=== PATIENT | female | born 1965 | race Caucasian/White ===

== ENCOUNTER 2025-05-22 14:58 | Day surgery (SDC) | payer OTHER, SELFPAY ==
[2025-05-22] VITALS (8 sets, daily range): BP systolic 98–127; BP diastolic 52–97; BMI 21.7
--- NOTE | 2025-05-22 09:46 | ED.GENMED ---
History of Present Illness
General
Chief Complaint: Abdominal Pain
Source: patient
Exam Limitations: none
Time Seen by Provider: 05/22/25 09:36
History of Present Illness
History of Present Illness:
60-year-old female presents complaining of right lower abdominal pain starting about 5 days ago and been fairly constant since then. She was seen by her family doctor and thought to potentially have appendicitis. She states at the current time her
pain is slightly improved. She denies any urinary symptoms nausea or vomiting. No fever. No prior abdominal surgical history. No chest pain or shortness of breath. Pain is sharp in nature. No other complaints at this time
Past History
Past History
ED Past Medical History: None
ED Past Surgical History: Gynecological (D and C)
Social History
Tobacco: Non-smoker
Alcohol: None
Drug: None
Personal:
Living: with family
Employment: Employed
Phy Exam
Physical Exam
Physical Exam:
General: Well-appearing female no acute distress
HEENT normocephalic atraumatic
Heart: Regular rate and rhythm lungs: Clear no wheeze abdomen is soft mildly tender to the right lower quadrant no guarding or rebound tenderness nondistended no costovertebral angle tenderness
Extremities: No cyanosis or edema
Course
Orders/Labs/Results
Orders:
Orders
05/22/25 09:47
CT Abd/pelvis W Iv Cont Urgent
Comment:
Reason For Exam: rlq pain
05/22/25 09:54
Complete Blood Count/With Diff Urgent
Comprehensive Metabolic Panel Urgent
Lipase Urgent
Urinalysis Reflex To Culture Urgent
Date Specimen was Collected: 05/22/25
Time Specimen was Collected: 09:53
Urine Microscopic Reflex Cult Urgent
05/22/25 14:03
Zosyn 3.375 grams IVPB NOW Piperacillin/Tazo 3.375 Gram [Zosyn] 3.375 gram in 50 ml IV NOW
Abnormal Lab Results
05/22/25
09:54
RBC 3.89 L 10^6/uL
(4.20-5.40)
Hgb 11.2 L g/dL
(12.0-16.0)
Hct 33.6 L %
(37.0-47.0)
Absolute Lymphs (auto) 1.1 L 10^3/uL
(1.2-3.4)
Lymphocytes % 20.4 L %
(20.5-51.1)
Monocytes % 9.8 H %
(1.7-9.3)
Glucose 109 H mg/dl
(70-99)
ALT 41 H U/L
(0-35)
Urine Bacteria (Reflex) Few A
(Negative)
Urine Albumin (Reflex) 1+ A
(Neg - Trace)
05/22/25 09:54
05/22/25 09:54
Vital Signs
Initial and Last Documented VS:
Initial Vital Signs
Temp Pulse Resp BP Pulse Ox
98.5 F 92 16 119/85 99
05/22/25 09:09 05/22/25 09:09 05/22/25 09:09 05/22/25 09:09 05/22/25 09:09
Last Documented Vital Signs
Temp Pulse Resp BP Pulse Ox
98.5 F 92 16 119/85 99
05/22/25 09:09 05/22/25 09:09 05/22/25 09:09 05/22/25 09:09 05/22/25 09:47
MDM/Problems Addressed
Differential Diagnosis Includes:
Lower right abdominal pain. Consider constipation versus appendicitis versus ovarian related pathology. At the current time her symptoms are slightly improved.
Will check labs urinalysis and CT of the abdomen
*Pulse Oximetry
SaO2: 99
Oxygen Mode of Delivery: Room air
Patient hypoxic: no
*Critical Care Note
Total Time (30-74mins, 75-104mins- exclusive of procedures): Not Applicable
Update Note
Update Note:
Patient reexamined. CT performed demonstrates enlarged appendix measuring up to 2 cm in diameter that seems to be folded over on itself with surrounding stranding. Question appendicitis versus mucocele versus less likely appendiceal cancer.
Discussed with surgery. Surgery plans on taking her to the OR today. Zosyn ordered
ED Attending Note
-
Portions of this chart may have been created with voice recognition software.� Occasional wrong word or��sound alike� substitutions may have occurred due to the inherent limitations of voice recognition software.
Discharge Plan
Departure
Patient Disposition: Admit
Date of Disposition: 05/22/25
Time of Disposition: 14:05
Presentation/result/management discussed w/ accepting MD/: Juanjose
Discharge Problem:
Abdominal pain
Prescriptions:
No Action
hydrocodone-acetaminophen 1 TABLET tablet
1 tab PO Q4HPRN PRN (Reason: pain) Qty: 13 0RF
Referrals:
Flakita Jackson DO [Family Provider, Internal Medicine]
Interventions
Interventions:
*Risk Screen - Suicide Last Done: 05/22/25 09:09
*General Assessment Last Done: 05/22/25 09:51
*Neglect/Abuse Screening Last Done: 05/22/25 09:09
EC-Izftpj-Jsmioebgdg Assessment Last Done: 05/22/25 09:51
Discharge Date and Time
Print Language: BELARUSIAN
[2025-05-22 10:24] LABS: Hematocrit 33.6 % (37.0-47.0); Hemoglobin 11.2 g/dL (12.0-16.0); Mean Corp Hgb Conc. 33.3 g/dL (33.0-37.0); Mean Corpuscular Volume 86.4 fL (81.0-99.0); Nucleated Red Blood Cells % 0 %; Platelet Count 275 10^3/uL (130-400); Red Cell Dist. Width 12.5 % (11.5-14.5)
[2025-05-22 10:32] LABS: Urine Character Clear (Clear)
[2025-05-22 10:57] LABS: ALT (SGPT) 41 U/L (0-35); AST (SGOT) 33 U/L (14-36); Albumin 4.4 g/dl (3.5-5.0); Alkaline Phosphatase 91 U/L (38-126); Blood Urea Nitrogen 17 mg/dl (7-17); Calcium 10.0 mg/dl (8.4-10.2); Carbon Dioxide 26 mmol/L (22-30); Chloride 105 mmol/L (98-107); Estimated Creatinine Clearance 74 ml/min; Glucose 109 mg/dl (70-99); Lipase 75 U/L (23-300); Potassium 4.0 mmol/L (3.5-5.1); Sodium 139 mmol/L (135-145); Total Protein 7.3 g/dl (6.3-8.2); eGFR > 60.00
[2025-05-22 11:01] LABS: Urine Red Blood Cell 0-2 /HPF (0-2); Urine Squamous Cell 0-2 /LPF (Few); Urine White Cell 0-2 /HPF (0-5)
--- NOTE | 2025-05-22 14:05 | CON.GS ---
Addendum entered and electronically signed by Sonny Sow MD 05/22/25 14:43:
I was physically present and personally performed the vasquez portions of the surgical evaluation and/or procedure with the resident. I discussed the findings, reviewed the resident�s note, and confirmed the medical decision-making. I provided direct
supervision as required and agree with the assessment and plan as documented with the following additions/corrections:
60F up to date with c-scopes with 5 days low grade RLQ pain. Pain seems to be improving, but not resolving. Denies f/c/n/v, denies anorexia. Labs unremarkable, CT notable for dilated tubular RLQ structure suspicious for appendiceal mucocele.
Recommend lap appy. Risks discussed including but not limited to pain, bleeding, infection, spillage of cyst contents, malignancy, need for further operations, ileus and she verbalized understanding and agreed to proceed. IV abx preop.
Original Note:
Consultation
-
Date/Time Consultation Performed: 1329
Performing Provider: Sergo Ramos MD
Reason for Consultation: Abdominal pain
Medical History
-
Chief Complaint: Abdominal pain
History of Present Illness:
Patient presents to the emergency department with 5 days of abdominal pain. Patient first noticed right lower quadrant abdominal discomfort 5 days ago, which she characterizes as 'gas-like.' The pain was slow in onset, and it has remained in the
RLQ, without radiation anywhere else. Patient states that when a toddler hit her RLQ 5 days ago, she had intense pain. No alleviating or aggravating factors. Patient attempted to apply a heat pad to the RLQ, which did not provide any notable
relief. Patient has never had pain like this before. No associated symptoms, including nausea, vomiting, changes in appetite, or changes in bowel habits. No recent trauma to her hip or abdomen. Patient had a colonoscopy nearly 10 years ago (at
age 51). The colonoscopy was unremarkable, and she was advised to follow-up for another colonoscopy in 10 years (i.e., due for follow-up within the next year). The pain/discomfort was significant enough that she saw her family physician yesterday,
who was concerned for appendicitis.
Past Medical History
Past Medical History: None
Past Surgical History: Gynecological (D&C) and Other ([place] tooth extraction)
Social History
Tobacco: Non-Smoker
Alcohol: None
Drug: None
Allergies / Home Medications
Allergy/AdvReac Type Severity Reaction Status Date / Time
Sulfa (Sulfonamide Allergy Rash Verified 05/22/25 09:11
Antibiotics)
�Medication �Instructions �Recorded �Confirmed �Type
hydrocodone 5 mg-acetaminophen 325 1 tab PO Q4HPRN PRN pain #13 tabs 02/02/14 Rx
mg tablet
Review of Systems
-
A 10 point review of systems was completed, and was negative except as per HPI.
Physical Exam
Vital Signs
Temp Pulse Resp BP Pulse Ox
98.5 F 92 16 119/85 99
05/22/25 09:09 05/22/25 09:09 05/22/25 09:09 05/22/25 09:09 05/22/25 09:47
05/21/25 05/22/25 05/23/25
06:59 06:59 06:59
Actual Weight 64.8 kg
Body Mass Index (BMI) 21.7
Lab Results
05/22/25 09:54
05/22/25 09:54
WBC 5.5 10^3/uL (4.8-10.8) 05/22/25 09:54
Hgb 11.2 g/dL (12.0-16.0) L 05/22/25 09:54
Hct 33.6 % (37.0-47.0) L 05/22/25 09:54
Plt Count 275 10^3/uL (130-400) 05/22/25 09:54
Abs Immat Gran (auto) 0.0 10^3/uL (0-0.05) 05/22/25 09:54
Neutrophils % 66.8 % (42.2-75.2) 05/22/25 09:54
Physical Exam
General: Well Developed, Well Nourished and No Apparent Distress; Negative Fever, Chills or Sweats
HEENT: Normocephalic and Atraumatic
GI: Soft, Non Distended, Tender (TTP RLQ (5/10 intensity)) and Other (No ecchymoses or erythema. No rigidity, guarding, or rebound tenderness. Rovsing negative.)
Skin: Warm
Neuro: Awake and AO x 3
Psych: Calm
Assessment / Plan
-
Assessment: Patient is a 60-year-old female with no significant past medical history or history of abdominal surgery who presented to the emergency department with 5 days of abdominal discomfort/pain localized to the right lower quadrant. CTAP in
the ED shows an approximately 2 cm fluid-filled structure in the RLQ with some wall thickening and mild surrounding stranding, concerning for appendicitis vs mucocele vs carcinoma. Physical exam in the ED shows TTP in the RLQ. Based on the
aforementioned findings, right lower quadrant pathology suspicious for atypical presentation of appendicitis vs mucocele.
AFVSS, no leukocytosis
CTAP 9/3: 2-cm fluid-filled structure in right lower quadrant with some wall thickening and surrounding stranding, c/f appendicitis/mucocele/carcinoma
Plan:
OR for laparoscopic appendectomy and evaluation of other possible pathology
Antibiotics: piperacillin�tazobactam
Diet: n.p.o. prior to surgery
Pain control: Fentanyl, Dilaudid
Antiemetics: Zofran PRN
IV fluids
--- NOTE | 2025-05-22 16:08 | OR.RPT ---
Operative Report
Operative Report
Primary Surgeon: Juanjose
Pre-op Diagnosis: Acute appendicitis
Post-op Diagnosis: Appendiceal mucocele
Procedure Performed: Laparoscopic appendectomy
Anesthesia Type: GETA
Specimen / Cultures: Appendix
Estimated Blood Loss: 10cc
Complications: None immediate
Operative Findings: Mildly inflamed significantly enlarged appendix, small rupture in the wall with release of very small amount of white mucous that was suctioned clear, irrigated with sterile water
Date of Surgery: 05/22/25
Indications: This 60F developed right lower quadrant abdominal pain and on workup was found to have likely acute appendicitis with suspicion for mucocele. Laparoscopic appendectomy was elected.
Description of procedure: The patient was placed on the operating table in the supine position. General anesthesia was induced. A time-out was completed verifying correct patient, procedure, site, positioning, and special equipment prior to
beginning this procedure. An orogastric tube was placed. The abdomen was prepped and draped in the usual sterile fashion. A stab incision was made in left upper quadrant and the Veress needle was inserted. Proper position was confirmed by aspiration
and saline meniscus test. The abdomen was insufflated with carbon dioxide to a pressure of 12 mmHg. The patient tolerated insufflation well.
A 5mm optical trocar was then inserted at the left lower quadrant. The laparoscope was inserted and the abdomen inspected. No injuries from initial trocar placement or Veress needle insertion were noted. Additional trocars were then inserted in the
following locations: a 12-mm trocar at the umbilicus and a 5-mm trocar midline in the suprapubic space. The abdomen was inspected and no abnormalities were found. The table was placed in the Trendelenburg position with the right side up. The
appendix was enlarged and encased in omentum, densly adherent to the pelvic sidewall. It was gently bluntly teased away from the wall and a small area of the appendiceal wall opened and about 2cc of thick white mucoid material extruded through the
opening. The tip of the appendix was gently grasped with an atraumatic grasper and retracted toward the patient�s feet and abdominal wall. This maneuver exposed the appendiceal blood supply which was controlled with the Ligasure device. Following
this, a laparoscopic linear cutting stapler with a 45mm erwin load was deployed and used to transect the appendix at its base. The appendix was placed in an endoscopic retrieval bag, removed through the umbilical port, and passed off the table as a
specimen.
We then turned our attention to the staple line, which was noted to be hemostatic. The abdomen and pelvis were irrigated thoroughly with sterile water. The umbilical trocar site was closed at the fascial level laparoscopically with 2-0 PDS under
direct vision. Secondary trocars were removed under direct vision and noted to be hemostatic. The laparoscope was withdrawn and the abdomen was allowed to collapse. The skin was closed with subcuticular sutures of 4-0 monocryl and topical skin
adhesive. The orogastric tube was removed.
The patient tolerated the procedure well and was taken to the postanesthesia care unit in stable condition.
== END 2025-05-22 17:53 | disposition home or self-care (01) ==
LOC: PACU 14:58
PROVIDERS: Physician Assistant; ATTENDING PHYSICIAN Surgery; EMERGENCY PHYSICIAN Emergency Medicine; FAMILY PHYSICIAN Internal Medicine
DX: K35.80 Unspecified acute appendicitis (principal); C18.1 Malignant neoplasm of appendix
CPT/HCPCS: 44970; 74177; 80053; 81003; 81015; 83690; 85025; 88304; 99285; Q9967

== ENCOUNTER 2025-05-23 12:40 | Emergency (ER) | payer OTHER, SELFPAY ==
[2025-05-23 12:42] VITALS: BP 93/50
--- NOTE | 2025-05-23 13:25 | ED.GENMED ---
History of Present Illness
General
Chief Complaint: Fever
Source: patient
Exam Limitations: none
Time Seen by Provider: 05/23/25 13:10
History of Present Illness
History of Present Illness:
See MDM
Past History
Past History
ED Past Medical History: None
ED Past Surgical History: Appendectomy and Gynecological (D and C)
Social History
Tobacco: Non-smoker
Alcohol: None
Drug: None
Personal:
Living: with family
Employment: Employed
Phy Exam
Physical Exam
Physical Exam:
See MDM
Course
Orders/Labs/Results
Orders:
Orders
05/23/25 13:22
Acetaminophen [Tylenol] 1,000 mg PO NOW STA
CR Chest - 2 Views Urgent
Comment:
Reason For Exam: fever
05/23/25 13:30
Complete Blood Count/With Diff Urgent
Comprehensive Metabolic Panel Urgent
Blood Culture Q30M
FELIX Source: Blood/Venous
Specimen Description:
Influenza A+B Rapid Molecular Urgent
FELIX Source: Nasal Swab
Specimen Description:
05/23/25 13:31
COVID-19 Antigen Urgent
Source: Nasal Swab
Lactic Acid Q4H
Comment: CANCEL 2nd LACTIC ACID IF 1st LACTIC ACID IS LESS THAN 2
05/23/25 14:02
Blood Culture Q30M
FELIX Source: Blood/Venous
Specimen Description:
05/23/25 14:03
Urinalysis Reflex To Culture Urgent
Date Specimen was Collected: 05/23/25
Time Specimen was Collected: 13:42
Urine Microscopic Reflex Cult Urgent
Urine Culture Urgent
FELIX Source: U
Specimen Description:
Date Specimen was Collected: 05/23/25
Time Specimen was Collected: 13:42
05/23/25 14:50
Incentive Spirometry [Rx Incentive Spirometry] [RESP] Urgent
Frequency: q1h while awake
Abnormal Lab Results
05/23/25 05/23/25
13:30 14:03
WBC 11.3 H 10^3/uL
(4.8-10.8)
RBC 3.52 L 10^6/uL
(4.20-5.40)
Hgb 10.1 L g/dL
(12.0-16.0)
Hct 30.4 L %
(37.0-47.0)
Absolute Neuts (auto) 9.7 H 10^3/uL
(1.4-6.5)
Absolute Lymphs (auto) 0.5 L 10^3/uL
(1.2-3.4)
Absolute Monos (auto) 1.1 H 10^3/uL
(0.1-0.6)
Neutrophils % 85.7 H %
(42.2-75.2)
Lymphocytes % 4.0 L %
(20.5-51.1)
Monocytes % 9.7 H %
(1.7-9.3)
Sodium 131 L D mmol/L
(135-145)
BUN 23 H mg/dl
(7-17)
Glucose 160 H mg/dl
(70-99)
Urine Ketones 1+ A
(Negative)
Ur Occult Blood Reflex 1+ A
(Negative)
Urine Bacteria (Reflex) Moderate A
(Negative)
Urine Albumin (Reflex) 2+ A
(Neg - Trace)
05/23/25 13:30
05/23/25 13:30
Vital Signs
Initial and Last Documented VS:
Initial Vital Signs
Temp Pulse Resp BP Pulse Ox
102.5 F H 86 16 93/50 99
05/23/25 12:42 05/23/25 12:42 05/23/25 12:42 05/23/25 12:42 05/23/25 12:42
Last Documented Vital Signs
Temp Pulse Resp BP Pulse Ox
102.5 F H 86 16 93/50 99
05/23/25 12:42 05/23/25 12:42 05/23/25 12:42 05/23/25 12:42 05/23/25 13:27
MDM/Problems Addressed
Differential Diagnosis Includes:
Note:
CHIEF COMPLAINT(S)
Fever post-appendectomy.
HISTORY OF PRESENT ILLNESS
The patient is a 60-year-old female who presents with a fever of 102�F following an appendectomy performed yesterday. The patient reports feeling slightly warm before the surgery as well. She denies any associated respiratory symptoms such as cough
or congestion, and there are no urinary symptoms. The surgical site from the appendectomy appears to be healing well, with no apparent signs of infection. The patient describes some abdominal discomfort, which is expected post-operatively,
especially when engaging in activities such as walking and eating. There is no complaint of cough or congestion, and the family was informed of the fever, although the surgical team was not notified prior to this visit. The patient feels a sense of
warmth and fatigue associated with the fever.
PHYSICAL EXAM
General: Alert, no acute distress.
Skin: Warm
Head: Normocephalic, atraumatic
Neck: Appears supple, trachea midline.
Eyes, Ears, Nose, Mouth, and Throat: Oral mucosa moist.
Cardiovascular: No signs of cyanosis
Respiratory: Respirations are non-labored. Lungs clear
Abdomen: Non-distended. Incision sites are clean and intact. Abdomen soft
Musculoskeletal: No deformities
Neurological: No focal neurological deficit observed.
Psychiatric: Cooperative, appropriate mood and affect.
PROBLEM LIST
Acute Problems:
- Fever post-appendectomy.
PLAN
- Perform COVID-19 and Influenza testing to rule out infectious causes.
- Obtain blood cultures to assess for any bacterial infection.
- Consider imaging to evaluate for possible post-surgical complications such as an abscess, if clinically indicated.
- Administer acetaminophen for fever management.
- Continue monitoring vital signs and symptom progression.
DIFFERENTIAL DIAGNOSIS
The Differential Diagnosis includes, in no particular order and is not limited to:
1. Post-operative infection
2. Viral infection (e.g., COVID-19, Influenza)
3. Bacterial infection unrelated to surgical site
4. Drug fever
5. Deep venous thrombosis
6. Atelectasis
7. Surgical site abscess
8. Sepsis
9. Pyelonephritis
10. Gastroenteritis
SUMMARY OF ENCOUNTER
The patient is a 60-year-old female who presented with fever post-appendectomy. Upon examination, it was noted that she had not been taking deep breaths, and a chest imaging showed evidence of atelectasis. This was considered likely the source of
her fever given the timing post-surgery. The patient was reassessed multiple times, and her abdomen remained benign and untender.
DISPOSITION
Discharge
ASSESSMENT
The patient likely has atelectasis post-appendectomy, contributing to her fever.
EMERGENCY TREATMENTS ADMINISTERED
The patient was provided an incentive spirometer and instructed on its use.
MANAGEMENT OF THE PATIENTS CARE WAS DISCUSSED WITH
The general surgeon was made aware of the findings and agrees with the management plan.
REASSESSMENT
On multiple reassessments, the patients abdomen remained benign and nontender.
PLAN
Administer incentive spirometer to encourage deeper breathing and resolution of atelectasis. Discussed return precautions if symptoms worsen or do not improve.
PATIENT EDUCATION AND COUNSELING
The patient was educated on the use of the incentive spirometer and the importance of deep breathing exercises. Return precautions were discussed.
FOLLOW-UP INSTRUCTIONS
The patient should follow up with her primary care physician or surgeon if symptoms persist or worsen.
MEDICAL DECISION MAKING
-Complexity of Data Reviewed: The differential diagnosis includes post-operative infection, viral infection, bacterial infection unrelated to surgical site, drug fever, deep venous thrombosis, atelectasis, surgical site abscess, sepsis,
pyelonephritis, and gastroenteritis.
-Data:
Category 1
My independent interpretation of chest imaging indicated atelectasis.
Category 3
Discussion of management with the general surgeon, who agrees with the current plan.
DIAGNOSIS
Atelectasis (ICD-10: J98.11)
*Pulse Oximetry
SaO2: 99
Oxygen Mode of Delivery: Room air
Patient hypoxic: no
*Critical Care Note
Total Time (30-74mins, 75-104mins- exclusive of procedures): Not Applicable
ED Attending Note
-
Portions of this chart may have been created with voice recognition software.� Occasional wrong word or��sound alike� substitutions may have occurred due to the inherent limitations of voice recognition software.
Discharge Plan
Departure
Patient Disposition: Home (Routine Discharge)
Date of Disposition: 05/23/25
Time of Disposition: 14:56
Patient with high blood pressure during this ER visit?: No
Discharge Problem:
Acute atelectasis
Instructions: Atelectasis
Prescriptions:
No Action
tramadol 50 mg tablet
50 mg PO Q6H PRN (Reason: Pain) Qty: 20 0RF
Referrals:
Flakita Jackson DO [Family Provider, Internal Medicine]
Activity Restrictions/Additional Instructions:
Please return for any worsening symptoms.
You may return at any time if you have further concerns.
Please use the incentive spirometer once every hour while awake for the next several days.
Please follow up with your doctor at the first available appointment, preferably this week.
Thank you for choosing [facility].
Interventions
Interventions:
*Risk Screen - Suicide Last Done: 05/23/25 12:44
*Neglect/Abuse Screening Last Done: 05/23/25 12:44
ED- Neurological Assessment Last Done: 05/23/25 13:38
ED-Skin Assessment Last Done: 05/23/25 13:38
Discharge Date and Time
Print Language: MALAWIAN
[2025-05-23 13:29] VITALS: BMI 22.4
[2025-05-23] MEDS: TYLENOL 1000 MG PO (13:35)
[2025-05-23 13:46] LABS: Hematocrit 30.4 % (37.0-47.0); Hemoglobin 10.1 g/dL (12.0-16.0); Mean Corp Hgb Conc. 33.2 g/dL (33.0-37.0); Mean Corpuscular Volume 86.4 fL (81.0-99.0); Nucleated Red Blood Cells % 0 %; Platelet Count 269 10^3/uL (130-400); Red Cell Dist. Width 12.3 % (11.5-14.5)
[2025-05-23 13:58] LABS: ALT (SGPT) 31 U/L (0-35); AST (SGOT) 29 U/L (14-36); Albumin 4.0 g/dl (3.5-5.0); Alkaline Phosphatase 82 U/L (38-126); Blood Urea Nitrogen 23 mg/dl (7-17); Calcium 9.1 mg/dl (8.4-10.2); Carbon Dioxide 28 mmol/L (22-30); Chloride 98 mmol/L (98-107); Estimated Creatinine Clearance 66 ml/min; Glucose 160 mg/dl (70-99); Potassium 4.2 mmol/L (3.5-5.1); Sodium 131 mmol/L (135-145); Total Protein 6.6 g/dl (6.3-8.2); eGFR > 60.00
[2025-05-23 14:10] LABS: COVID-19 Antigen Negative (Negative)
[2025-05-23 14:11] LABS: Urine Character Clear (Clear)
[2025-05-23 14:33] LABS: Urine Squamous Cell >30 /LPF (Few)
[2025-05-23 14:34] LABS: Urine Red Blood Cell 0-2 /HPF (0-2)
[2025-05-23 15:14] VITALS: BP 89/57
== END 2025-05-23 15:22 | disposition home or self-care (01) ==
LOC: EMR 12:40
PROVIDERS: EMERGENCY PHYSICIAN Student in an Organized Health Care Education/Training Program; FAMILY PHYSICIAN Internal Medicine
DX: J98.11 Atelectasis (principal); Z90.49 Acquired absence of other specified parts of digestive tract; Z11.52 Encounter for screening for COVID-19
CPT/HCPCS: 99284; 71046; 80053; 81003; 81015; 83605; 85025; 87040; 87086; 87502; 87811

== ENCOUNTER 2025-06-19 06:19 | Day surgery (SDC) | payer OTHER, SELFPAY | END 2025-06-19 14:47 | disposition home or self-care (01) | LOC: GI 06:19 | PROVIDERS: ATTENDING PHYSICIAN Internal Medicine; FAMILY PHYSICIAN Internal Medicine | DX: Z12.11 Encounter for screening for malignant neoplasm of colon (principal); K64.8 Other hemorrhoids; K63.5 Polyp of colon; K63.3 Ulcer of intestine; K52.89 Other specified noninfective gastroenteritis and colitis | CPT/HCPCS: 45380; 45381; 88305; 88342 ==

== ENCOUNTER 2025-08-05 12:21 | Inpatient (IN) | payer OTHER, SELFPAY ==
--- NOTE | 2025-07-31 15:34 | PTCARENOTE ---
Abnormal ECG done 07/30/[address] Del Toro, no further interventions requested.
[2025-08-05] VITALS (8 sets, daily range): BP systolic 104–132; BP diastolic 55–84
[2025-08-05] MEDS: TYLENOL 1000 MG PO (12:49)
[2025-08-05] MEDS: HEPARIN 5000 UNITS SC (12:49)
[2025-08-05] MEDS: NORMOSOL-R/PLASMALYTE-A 1000 IV (12:59)
--- NOTE | 2025-08-05 14:47 | W.IMMPOSTOP ---
Surgical Immed Post Op Note
-
Primary Surgeon: Juanjose
Assisting: Ramonita SAMSON
Pre-op Diagnosis: LAMN
Post-op Diagnosis: Same
Procedure Performed: Laparoscopic partial cecectomy
Anesthesia Type: GETA
Specimen / Cultures: Cecum
Estimated Blood Loss: 5cc
Complications: None immediate
Operative Findings: Right colon mobilized, terminal ileum and ileocecal junction identified and protected, old staple line identified; a wedge of cecum was taken incorporating the old staple line with an endoGIA stapler 60mm purple load
--- NOTE | 2025-08-05 14:49 | OR.RPT ---
Operative Report
Operative Report
Primary Surgeon: Juanjose
Assisting: Ramonita SAMSON
Pre-op Diagnosis: LAMN
Post-op Diagnosis: Same
Procedure Performed: Laparoscopic partial cecectomy
Anesthesia Type: GETA
Specimen / Cultures: Cecum
Estimated Blood Loss: 5cc
Complications: None immediate
Operative Findings: Right colon mobilized, terminal ileum and ileocecal junction identified and protected, old staple line identified; a wedge of cecum was taken incorporating the old staple line with an endoGIA stapler 60mm purple load
Date of Surgery: 08/05/25
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 She underwent colonoscopy and no other malignancy was
identified. Laparoscopic partial cecectomy was elected with the goal of achieving a negative margin.
Description of procedure: The patient was placed on the operating table in the supine position. General anesthesia was induced. A time-out was completed verifying correct patient, procedure, site, positioning, and special equipment prior to
beginning this procedure. An orogastric tube was placed. The abdomen was prepped and draped in the usual sterile fashion. A stab incision was made in left upper quadrant and the Veress needle was inserted. Proper position was confirmed by aspiration
and saline meniscus test. The abdomen was insufflated with carbon dioxide to a pressure of 12 mmHg. The patient tolerated insufflation well.
A 5mm optical trocar was then inserted at the left lower quadrant. The laparoscope was inserted and the abdomen inspected. No injuries from initial trocar placement or Veress needle insertion were noted. Additional trocars were then inserted in the
following locations: a 12-mm trocar at the umbilicus and a 5-mm trocar midline in the suprapubic space. Pre-existing scars were used for the three lap ports. The abdomen was inspected and no abnormalities were found. The table was placed in the
Trendelenburg position with the right side up. The cecum was gently grasped with an atraumatic grasper and retracted toward the patient�s head and abdominal wall. The right colon was mobilized off the avascular lateral plane with the Ligasure
device. The old staple line was identified as well as the terminal ileum and ileocecal junction. Following this, a laparoscopic linear cutting stapler with a 60mm purple load was deployed and used to resect a cuff of cecum incorporating the old
staple line while protecting the ileocecal junction. The specimen was placed in an endoscopic retrieval bag, removed through the umbilical port, and passed off the table. It was sent for frozen analysis and the margin was negative.
We then turned our attention to the staple line, which was noted to be hemostatic. The umbilical trocar site was closed at the fascial level laparoscopically with 2-0 PDS under direct vision. Secondary trocars were removed under direct vision and
noted to be hemostatic. The laparoscope was withdrawn and the abdomen was allowed to collapse. The skin was closed with subcuticular sutures of 4-0 monocryl and topical skin adhesive. The orogastric tube was removed.
The patient tolerated the procedure well and was taken to the postanesthesia care unit in stable condition.
The assistance of Ramonita SAMSON was required due to the complexity of the procedure. During the procedure she assisted with retraction, resection, and closure of the wound.
--- NOTE | 2025-08-06 11:30 | W.PN.UPDATE ---
Update Note
Progress Note Update
Procedure dated 08/05/25 was planned as inpatient. Procedure was done laparoscopically and pt did well post-op and was able to be discharged.
== END 2025-08-05 16:23 | disposition home or self-care (01) | DRG 331 ==
LOC: AMOS 12:21
PROVIDERS: ADMITTING PHYSICIAN Surgery; FAMILY PHYSICIAN Internal Medicine
PROC: 0DBH4ZZ Excision of Cecum, Percutaneous Endoscopic Approach (ICD-10-PCS; 2025-08-05)
DX: D49.0 Neoplasm of unspecified behavior of digestive system (principal); Z88.2 Allergy status to sulfonamides
CPT/HCPCS: 88307; 88331; 93005